=== PATIENT | male | born 1945 | race Caucasian/White ===

== ENCOUNTER 2019-06-07 11:09 | Day surgery (SDC) | payer MEDICARE, OTHER, MEDICAID ==
[2019-06-07] MEDS ORDERED: PROPOFOL 20 ML (12:37)
[2019-06-07] MEDS ORDERED: LIDOCAINE 100 MG SYRINGE (12:37)
[2019-06-07] MEDS ORDERED: ETOMIDATE 20 MG INJ (12:37)
[2019-06-07] MEDS ORDERED: hydrALAzine 20 MG INJ IV (13:00)
[2019-06-07] MEDS ORDERED: LABETALOL HCL 20MG INJ IV (13:00)
[2019-06-07] MEDS ORDERED: VASOPRESSIN 20 UNITS INJ (13:07)
== END 2019-06-07 15:20 | disposition home or self-care (01) ==
LOC: GIL 11:09
DX: K44.9 Diaphragmatic hernia without obstruction or gangrene (principal); K20.8 Other esophagitis; I25.10 Atherosclerotic heart disease of native coronary artery without angina pectoris; Z86.73 Personal history of transient ischemic attack (TIA), and cerebral infarction without residual deficits; I13.0 Hypertensive heart and chronic kidney disease with heart failure and stage 1 through stage 4 chronic kidney disease, or unspecified chronic kidney disease; I50.9 Heart failure, unspecified; N18.9 Chronic kidney disease, unspecified; Z79.82 Long term (current) use of aspirin
CPT/HCPCS: 43235